=== PATIENT | male | born 1935 | race Caucasian/White ===

== ENCOUNTER 2025-06-24 13:00 | Inpatient (IN) | payer MEDICARE, BC ==
[~2025-06-24] VITALS: Ht 177.8 cm; Wt 79.4 kg
[2025-06-24 14:28] LABS: PLATELET COUNT (AUTO) 254 K/uL (150-450); RED BLOOD CELL COUNT(AUTO) 4.14 MIL/uL (4.5-6.0); RED CELL DISTRIBUTION WIDTH 14.7 % (11.5-15.0); WHITE BLOOD COUNT (AUTO) 9.1 K/uL (4.3-11.0)
[2025-06-24 14:38] LABS: CALCIUM, SERUM 8.4 mg/dL (8.5-10.1); CREATININE 1.1 mg/dL (0.6-1.3); SODIUM SERUM 142.0 mmol/L (136-145); UREA NITROGEN, BLOOD 24.0 mg/dL (7-18)
[2025-06-24 14:40] LABS: ASPARTATE AMINOTRANSFERASE 87.0 U/L (15-37); TOTAL PROTEIN, SERUM 7.2 g/dL (6.4-8.2)
[2025-06-24] MEDS ORDERED: RISP1TAB7 PO (14:43)
[2025-06-24] MEDS ORDERED: MIRT-90 PO (14:43)
[2025-06-24] MEDS ORDERED: MEMA5TAB PO (14:43)
[2025-06-24] MEDS ORDERED: DONE5TAB34 PO (14:43)
[2025-06-24] MEDS ORDERED: DOCU100C36 PO (14:43)
[2025-06-24] MEDS ORDERED: RISP1TAB97 PO (14:43)
[2025-06-24] MEDS ORDERED: LACT10SO29 PO (14:43)
[2025-06-24] MEDS ORDERED: TRAZ-257 PO (14:43)
[2025-06-24] MEDS ORDERED: ACET325T53 PO (14:43)
[2025-06-24] MEDS ORDERED: GABA-532 PO (14:43)
[2025-06-24 14:47] LABS: INR 1.01 (0.91-1.10)
[2025-06-24] MEDS ORDERED: TRAZODONE 50 MG TABLET PO PRN (15:30)
[2025-06-24] MEDS ORDERED: ONDANSETRON HCL/PF 4 MG/2 ML VIAL IVP PRN (15:30)
[2025-06-24] MEDS ORDERED: HYDROCODONE/APAP 5/325MG TABLET PO PRN (15:30)
[2025-06-24] MEDS ORDERED: MAG HYDROX/AL HYDROX/SIMETH 30 ML UDC PO PRN (15:30)
[2025-06-24] MEDS ORDERED: LACTULOSE 10 G/15 ML UDC (PYXIS) PO PRN (15:30)
[2025-06-24] MEDS ORDERED: MAGNESIUM HYDROXIDE 30 ML UDC PO PRN (15:30)
[2025-06-24] MEDS ORDERED: Z GUARD REMEDY 4 OZ OINT TP PRN (15:30)
[2025-06-24] MEDS: MINERAL OIL 133 ML (PYXIS) 1 EA ENEMA RC ONE ×2 (15:30→20:57)
[2025-06-24] MEDS ORDERED: ACETAMINOPHEN 325 MG TABLET PO PRN (15:30)
[2025-06-24 16:00] VITALS: BP 135/66; TEMP 98.1; O2SAT 95
[2025-06-24] MEDS ORDERED: ALBUTEROL FS 2.5 MG/3 ML VIAL.NEB NEB PRN (16:00)
[2025-06-24] MEDS ORDERED: IPRATROPIUM NEB FS 0.5 MG/2.5 ML AMPUL.NEB NEB PRN (16:00)
[2025-06-24] MEDS: GABAPENTIN 300 MG CAPSULE PO SCH (17:48)
[2025-06-24] MEDS: IV NS 0.9% 1,000 ML IV PRN (18:34)
[2025-06-24 20:00] VITALS: BP 113/59; TEMP 98.4; O2SAT 96
[2025-06-24] MEDS: MEMANTINE HCL 5 MG TABLET PO SCH (21:50)
[2025-06-24] MEDS: DOCUSATE SODIUM 100 MG CAPSULE PO SCH (21:51)
[2025-06-24] MEDS: DONEPEZIL 5 MG TABLET PO SCH (21:51)
[2025-06-24] MEDS: MIRTAZAPINE 15 MG TABLET PO SCH (21:51)
[2025-06-24] MEDS: ACETAMINOPHEN 325 MG TABLET PO PRN (22:22)
[2025-06-25 06:22] LABS: PLATELET COUNT (AUTO) 227 K/uL (150-450); RED BLOOD CELL COUNT(AUTO) 3.81 MIL/uL (4.5-6.0); RED CELL DISTRIBUTION WIDTH 14.6 % (11.5-15.0); WHITE BLOOD COUNT (AUTO) 6.4 K/uL (4.3-11.0)
[2025-06-25 06:25] LABS: CALCIUM, SERUM 8.2 mg/dL (8.5-10.1); CREATININE 0.9 mg/dL (0.6-1.3); PHOSPHORUS 3.6 mg/dL (2.5-4.9); SODIUM SERUM 144.0 mmol/L (136-145); UREA NITROGEN, BLOOD 23.0 mg/dL (7-18)
[2025-06-25 06:47] LABS: LDL 87.0 mg/dL (0-99)
[2025-06-25 08:00] VITALS: BP 145/55; TEMP 98.1; O2SAT 96
[2025-06-25] MEDS: PANTOPRAZOLE 40 MG TABLET.DR PO SCH (08:37)
[2025-06-25 13:13] LABS: APPEARANCE,URINE CLEAR (CLEAR); BLOOD, URINE TRACE-INTA Ery/uL (NEGATIVE); LEUKOCYTE ESTERASE ,URINE TRACE (NEGATIVE); NITRITE, URINE NEGATIVE (NEGATIVE); UGLUCOSE NEGATIVE (NEGATIVE)
[2025-06-25 13:20] LABS: ADD URINE CULTURE YES; SQUAMOUS EPITHELIAL CELL,UR Rare /HPF (None Seen)
[2025-06-25 16:00] VITALS: BP 126/61; TEMP 98.1; O2SAT 97
[2025-06-25 20:00] VITALS: BP_SYST 116; BP_DIAS 102; BP_DIAS 92; TEMP 97.5; O2SAT 95
[2025-06-26 08:00] VITALS: BP 151/61; TEMP 98.4; O2SAT 96
[2025-06-26] MEDS: CEPHALEXIN MONOHYDRATE 500 MG CAPSULE PO SCH (10:32)
[2025-06-26 16:00] VITALS: BP 120/69; TEMP 97.5; O2SAT 96
[2025-06-26 17:15] LABS: SERUM AMMONIA 20.0 umol/L (11-32)
[2025-06-26 17:28] LABS: CREATINE KINASE, TOTAL 282.0 U/L (39-308)
[2025-06-26 20:00] VITALS: BP 160/70; TEMP 97.3; O2SAT 96
[2025-06-27 08:08] LABS: AMPHETAMINE, URINE NEGATIVE (NEGATIVE); BARBITURATE, URINE NEGATIVE (NEGATIVE); BENZODIAZEPINE, URINE NEGATIVE (NEGATIVE); CANNABINOID, URINE NEGATIVE (NEGATIVE); COCCAINE, URINE NEGATIVE (NEGATIVE); OPIATE, URINE NEGATIVE (NEGATIVE)
== END 2025-06-27 15:50 | DRG 551 ==
LOC: ER 13:27 → MED 15:13
PROVIDERS: ADMIT Nurse Practitioner Acute Care; ATTEND Nurse Practitioner Acute Care
DX: M43.8X4 Other specified deforming dorsopathies, thoracic region (principal); G93.41 Metabolic encephalopathy; F02.83 Dementia in other diseases classified elsewhere, unspecified severity, with mood disturbance; F32.A Depression, unspecified; J44.9 Chronic obstructive pulmonary disease, unspecified; F20.9 Schizophrenia, unspecified; E86.0 Dehydration; G30.9 Alzheimer's disease, unspecified; W01.0XXA Fall on same level from slipping, tripping and stumbling without subsequent striking against object, initial encounter; M51.35 Other intervertebral disc degeneration, thoracolumbar region; K59.00 Constipation, unspecified; R33.9 Retention of urine, unspecified
CPT/HCPCS: 36415; 70450-TC; 71045-TC; 80048-TC; 80061-TC; 80076-TC; 81001; 82140-TC; 82550-TC; 82607-TC; 83735-TC; 83921; 84100-TC; 84443-TC; 85025-TC; 85730-TC; 86850-TC; 87086-TC; 93307-TC; 97110-TC; 97116-TC; 97530-TC; G0378; J7030